=== PATIENT | male | born 1970 | race Two or more races ===

== ENCOUNTER 2017-09-18 16:01 | Outpatient (CLI) | payer OTHER | END 2017-09-18 16:17 | disposition home or self-care (01) | LOC: RAD 16:01 | DX: M25.571 Pain in right ankle and joints of right foot (principal) ==

== ENCOUNTER 2020-04-29 11:40 | Outpatient (CLI) | payer OTHER | END 2020-04-29 12:59 | disposition home or self-care (01) | LOC: RAD 11:40 | PROVIDERS: ATTEND Physical Medicine & Rehabilitation | DX: M17.12 Unilateral primary osteoarthritis, left knee (principal); S86.112A Strain of other muscle(s) and tendon(s) of posterior muscle group at lower leg level, left leg, initial encounter ==